=== PATIENT | male | born 1970 | race Caucasian/White ===

== ENCOUNTER → 2017-07-19 | Outpatient (REF) ==
[~2017-07-19] MED LIST: PROAIR HFA0.09 MG/AC IH
== END ==
LOC: ZLAB.WCH 08:30
DX: Z01.89 Encounter for other specified special examinations (principal)

== ENCOUNTER → 2017-07-23 | Outpatient (CLI) | payer SELFPAY ==
[2017-07-23] VITALS (15 sets, daily range): BP systolic 100–135; BP diastolic 63–82; PULSE 67–93
[~2017-07-23] VITALS: Ht 180.3 cm; Wt 76.9 kg
[~2017-07-23] MED LIST changes: +VITAMINC1000TA PO
== END ==
LOC: COL.RAD 09:58
DX: R59.0 Localized enlarged lymph nodes (principal)

== ENCOUNTER → 2017-09-19 | Outpatient (REF) | LOC: ZLAB.WCH 14:24 | DX: Z01.89 Encounter for other specified special examinations (principal) ==

== ENCOUNTER 2019-03-02 09:36 | Day surgery (SDC) | payer SELFPAY ==
[~2019-03-02] VITALS: Ht 180.3 cm; Wt 82.7 kg
[2019-03-02 10:05] VITALS: BP 130/87; PULSE 62; TEMP 97.1
[2019-03-02] MEDS ORDERED: PRILOTC PO (10:14)
[2019-03-02] MEDS ORDERED: PREDNISONE20 MG PO (10:14)
--- NOTE | 2019-03-02 10:15 | NUR ---
TO RM AT 0950- CALL LIGHT IN REACH AT BEDSIDE.
[2019-03-02 12:10] VITALS: BP 115/71; PULSE 63; TEMP 97.4
--- NOTE | 2019-03-02 12:10 | NUR ---
TO BAY 4 PER CART FROM ENDOSCOPY. ALERT ORIENTED X3, TALKING TO . AMBULATED TO RECLINER WITH ASSIST. AT BEDSIDE. DR SIEGEL INTO TALK WITH PATIENT AND HIS ..
[2019-03-02 12:25] VITALS: BP 104/70; PULSE 59
--- NOTE | 2019-03-02 12:25 | NUR ---
RECEIVED WARM COFFEE (ICED). DRANK 100%, DENIES WANTING ANYTHING TO EAT.
[2019-03-02 12:40] VITALS: BP 115/75; PULSE 55
--- NOTE | 2019-03-02 12:40 | NUR ---
RECEIVED 2ND CUP WARM (ICED COFFEE) PATIENT DRANK 100%
--- NOTE | 2019-03-02 12:55 | NUR ---
RECEIVED DISCHARGE INSTRUCTIONS AND VERBALIZED UNDERSTANDING. DISCONTINUED IV AND INT- CATHETER INTACT
--- NOTE | 2019-03-02 13:05 | NUR ---
DISCHARGED PER WC BY NURSING STAFF TO PRIVATE CAR IN CARE OF DAJA
== END 2019-03-02 13:15 | disposition home or self-care (01) ==
LOC: SDCO 09:36
DX: R10.13 Epigastric pain (principal); K21.9 Gastro-esophageal reflux disease without esophagitis; K44.9 Diaphragmatic hernia without obstruction or gangrene; K63.9 Disease of intestine, unspecified; Z87.19 Personal history of other diseases of the digestive system; D86.9 Sarcoidosis, unspecified; Z79.899 Other long term (current) drug therapy; J45.909 Unspecified asthma, uncomplicated; Z87.891 Personal history of nicotine dependence
CPT/HCPCS: J2250; J3010; J7030

== ENCOUNTER → 2019-04-09 | Outpatient (CLI) | payer SELFPAY ==
[~2019-04-09] MED LIST changes: +PREDNISONE20 MG PO; +PRILOTC PO
== END ==
LOC: COL.RAD 06:33
DX: K31.84 Gastroparesis (principal)
CPT/HCPCS: A9541

== ENCOUNTER 2020-02-23 12:37 | Outpatient (CLI) | payer SELFPAY ==
[2020-02-23] VITALS (8 sets, daily range): BP systolic 106–136; BP diastolic 70–98; PULSE 55–78
[~2020-02-23] VITALS: Ht 180.3 cm; Wt 82.0 kg
[~2020-02-23 12:37] MED LIST changes: +ULTRAM 50MG TAB50 MG PO; +VITAMINC1000TA
--- NOTE | 2020-02-23 15:25 | NUR ---
Pt assisted to 's car by wheelchair after review of DC instructions.
== END 2020-02-23 15:50 | disposition home or self-care (01) ==
LOC: COL.RAD 12:37
DX: M48.061 Spinal stenosis, lumbar region without neurogenic claudication (principal); M51.16 Intervertebral disc disorders with radiculopathy, lumbar region
CPT/HCPCS: Q9965

== ENCOUNTER → 2022-12-12 | Outpatient (CLI) | payer SELFPAY | LOC: COL.PUL 08:35 | DX: J45.40 Moderate persistent asthma, uncomplicated (principal); D86.0 Sarcoidosis of lung ==

== ENCOUNTER 2023-12-26 11:59 | Observation (INO) | payer SELFPAY ==
[~2023-12-26] VITALS: Ht 182.9 cm; Wt 85.1 kg
[2023-12-26] VITALS (11 sets, daily range): BP systolic 123–145; BP diastolic 69–92; PULSE 62–73; TEMP 98–126
[2023-12-26] MEDS ORDERED: NS 1,000 ML IV ONE (12:15)
[2023-12-26 12:26] LABS: BASO % 0.5 % (0.0-2.0); EOS # 0.2 K/mm3 (0.0-0.7); EOS % 2.7 % (0.0-4.0); GRAN % 63.5 % (42.2-75.2); HEMATOCRIT 45.8 % (42.0-52.0); HEMOGLOBIN 16.3 g/dl (13.5-18.0); LYMPH # 1.4 K/mm3 (1.2-3.4); LYMPH % 21.5 % (20.0-51.0); MEAN CELL VOLUME 94 fl (80.0-100.0); MEAN CORPUSCULAR HEMOGLOBIN 34 pg (27-31); MEAN CORPUSCULAR HGB CONC 36 g/dl (33.0-37.0); MEAN PLATELET VOLUME 9.2 fl (7.4-10.4); MONO # 0.7 K/mm3 (0.1-0.6); MONO % 11.5 % (1.7-9.3); PLATELET COUNT 294 K/mm3 (130-400); RED BLOOD COUNT 4.86 M/mm3 (4.20-5.60); REDCELL DISTRIBUTION WIDTH-CV 12.2 % (11.5-14.5)
[2023-12-26 12:52] LABS: ALANINE AMINOTRANSFERASE 33 U/L (0-55); ALBUMIN 4.2 g/dL (3.5-5.0); ALKALINE PHOSPHATASE 71 U/L (40-150); ANION GAP 11 mmol/L (7-16); AST,SGOT 21 U/L (5-34); BILIRUBIN,TOTAL 0.7 mg/dL (0.2-1.2); BLOOD UREA NITROGEN 9 mg/dL (8-26); CALCIUM 9.9 mg/dL (8.4-10.2); CHLORIDE 102 mEq/L (98-107); CREATININE, serum 0.83 mg/dL (0.72-1.25); GLUCOSE 95 mg/dL (70-99); POTASSIUM 3.7 mEq/L (3.5-4.5); SODIUM 139 mEq/L (136-145); TOTAL PROTEIN 8.1 g/dl (6.2-8.1)
[2023-12-26 13:00] LABS: TROPONIN-I < 0.010 ng/mL (0.00-0.033)
[2023-12-26] MEDS ORDERED: Nitroglycerin 2% Topical Oint 1 GM UD TD ONE (13:15)
[2023-12-26] MEDS ORDERED: Docusate Sodium 100 MG CAP PO PRN (13:45)
[2023-12-26] MEDS ORDERED: Polyethylene Glycol 3350 17 GM PDS PO PRN (13:45)
[2023-12-26] MEDS ORDERED: Acetaminophen 325 MG TAB PO PRN (13:45)
[2023-12-26] MEDS ORDERED: 1/2 NS 1,000 ML IV SCH ×2 (14:45→16:00)
--- NOTE | 2023-12-26 14:50 | NUR ---
Patient up to medical floor from ED, awake, alert and oriented. C/O chest pain 5/10. Nitro paste to left chest. Aware of plans to go to cardiac cath. at the bedside. Bed in lowest position with call light within reach.
--- NOTE | 2023-12-26 15:34 | NUR ---
SEE MERGE FOR PROCEDURE DOCUMENTATION
[2023-12-26] MEDS ORDERED: Nitroglycerin 2% Topical Oint 1 GM UD TD SCH (16:04)
[2023-12-26] MEDS ORDERED: niCARdipine (Cath Lab) 100 MCG/ML 10 ML VIAL INCOR SCH (16:04)
[2023-12-26] MEDS ORDERED: Iohexol 350 - 100 ML VIAL INCOR ONE (16:07)
[2023-12-26] MEDS ORDERED: Heparin 1,000 UNITS/ML 10 ML Multi-Dose VIAL IV SCH (16:08)
[2023-12-26] MEDS ORDERED: Midazolam 2 MG/2 ML VIAL IV SCH (16:12)
[2023-12-26] MEDS ORDERED: fentaNYL 50 MCG/ML 2 ML VIAL IV SCH (16:13)
--- NOTE | 2023-12-26 16:25 | NUR ---
Pt back up to floor after cardiac cath, awake, alert and oriented.
[2023-12-26] MEDS ORDERED: NITROSTAT0.4 MG/TAB SL (17:09)
[2023-12-26] MEDS ORDERED: IMDUR 30MG30 MG/TAB PO (17:10)
--- NOTE | 2023-12-26 19:16 | NUR ---
3 additional cc's removed from TR band, 3 cc's remain. Report given to RONN Mckeon at this time no bleeding, tenderness, or s/s of hematoma are evident.
--- NOTE | 2023-12-26 23:47 | NUR ---
patient lying in bed, alert and oriented x4. denies chest pain/discomfort and shortness of breath. 3 mls of air released from right radial TR band during shift change at 1900, remaining 4 mls of air removed from TR band at 1999, no hematoma of active bleeding present, TR band removed and bandaid placed on right radial site. IV in RAC discontinued, telemetry removed. pt and provided discharge instructions. pt and family have no further needs, questions or concerns at this time. pt refused wheel chair. this RN walked with pt and , pt ambulating with steady gait to discharge at 2019.
== END 2023-12-26 20:20 | disposition home or self-care (01) ==
LOC: COL.ER 11:59 → MEDICAL 13:36
PROVIDERS: Emergency Medicine; ADMIT Internal Medicine
DX: I20.1 Angina pectoris with documented spasm (principal); K21.9 Gastro-esophageal reflux disease without esophagitis; Z87.891 Personal history of nicotine dependence; Z79.899 Other long term (current) drug therapy
CPT/HCPCS: C1769; G0378; J1644; J2250; J2404; J3010; J7030; Q9967